=== PATIENT | male | born 1970 | race Caucasian/White ===

== ENCOUNTER 2019-01-27 14:56 | Emergency (ER) | payer OTHER ==
[~2019-01-27] VITALS: Ht 170.2 cm; Wt 101.7 kg
[2019-01-27 15:15] VITALS: Ht 170.2 cm; Wt 101.7 kg
[2019-01-27 18:06] VITALS: BP 126/77
== END 2019-01-27 18:06 | disposition home or self-care (01) ==
LOC: ED 14:56
DX: E11.40 Type 2 diabetes mellitus with diabetic neuropathy, unspecified (principal); I10 Essential (primary) hypertension
CPT/HCPCS: J1885